=== PATIENT | male | born 1950 | race Caucasian/White ===

== ENCOUNTER 2019-01-30 11:33 | Inpatient (IN) | payer MEDICAID ==
[~2019-01-30] VITALS: Ht 175.3 cm; Wt 104.8 kg
[2019-01-30] MEDS ORDERED: MORPHINE SULFATE 4 MG/ML CPJ (NOT FOR IM USE) IV STA (14:06)
[2019-01-30] MEDS ORDERED: ONDANSETRON HCL 4MG/2ML INJ IV STA (14:06)
[2019-01-30] MEDS ORDERED: SODIUM CHLORIDE 0.9% 1,000 ML IV ONE (14:06)
[2019-01-30 14:27] LABS: BASOPHILS % 0.7 % (0.0-2.0); EOSINOPHILS % 1.6 % (0.0-5.0); HEMATOCRIT. 42.3 % (42.0-52.0); HEMOGLOBIN. 14.1 g/dL (14.0-18.0); LYMPHOCYTES % 24.4 % (20.0-50.0); MEAN CORPUSCULAR HEMOGLOBIN 29.5 pg (28.0-32.0); MEAN CORPUSCULAR VOLUME 88.8 fL (80.0-94.0); MEAN PLATELET VOLUME 9.6 fl (7.4-10.4); MONOCYTES % 6.1 % (2.0-8.0); NEUTROPHILS % 67.2 % (40.0-76.0); PLATELET 292 x1000/uL (130-400); RED BLOOD CELL COUNT 4.76 mill/uL (4.7-6.1); RED CELL DISTRIBUTION WIDTH 13.6 % (11.6-14.6)
[2019-01-30 14:28] LABS: CLARITY URINE CLEAR (CLEAR); COLOR URINE YELLOW (YELLOW); KETONES URINE NEGATIVE (NEGATIVE); LEUKOCYTE ESTERASE URINE NEGATIVE (NEGATIVE); NITRITE URINE NEGATIVE (NEGATIVE); OCCULT BLOOD URINE NEGATIVE (NEGATIVE); PROTEIN URINE NEGATIVE (NEGATIVE); SPECIFIC GRAVITY URINE 1.013 (1.005-1.030); UROBILINOGEN URINE 0.2 E.U./dL (0.2-1.0)
[2019-01-30 14:34] LABS: CHLORIDE 105 mEq/L (98-107)
[2019-01-30] MEDS ORDERED: FUROSEMIDE 40MG/4ML VIAL IVP ONE (17:00)
[2019-01-30] MEDS ORDERED: ASPIRIN 81MG TABLET PO ONE (17:30)
[2019-01-30] MEDS ORDERED: NITROGLYCERIN OINT 1GM/INCH UDPKT TD ONE (17:30)
[2019-01-30] MEDS ORDERED: MAGNESIUM/ALUMINUM HYDROXIDE/SIMETHICONE 30ML UDC PO PRN (18:30)
[2019-01-30] MEDS ORDERED: PIPERACILLIN/TAZ 3.375G PREMIX 50 ML IV SCH (18:30)
[2019-01-30] MEDS ORDERED: CLONIDINE 0.1MG TABLET PO PRN (18:30)
[2019-01-30] MEDS ORDERED: DOCUSATE SODIUM 100MG CAPSULE PO PRN (18:30)
[2019-01-30] MEDS ORDERED: LORAZEPAM 0.5MG TABLET PO PRN (18:30)
[2019-01-30] MEDS ORDERED: ENOXAPARIN 40MG/0.4ML SYR SUBCUT SCH (18:30)
[2019-01-30] MEDS ORDERED: GUAIFENESIN 200MG/10ML SUGAR FREE UDC PO PRN (18:30)
[2019-01-30] MEDS ORDERED: ONDANSETRON HCL 4MG/2ML INJ IV PRN (18:30)
[2019-01-30] MEDS ORDERED: IPRATROPIUM/ALBUTEROL 0.5-3(2.5)MG/3ML NEB NEB PRN (18:30)
[2019-01-30] MEDS ORDERED: NITROGLYCERIN 0.4MG TABLET SL SL PRN (18:30)
[2019-01-30] MEDS ORDERED: ACETAMINOPHEN 325MG TABLET PO PRN (18:30)
[2019-01-30] MEDS ORDERED: DIPHENHYDRAMINE 50MG/ML VIAL IV PRN (18:30)
[2019-01-30] MEDS ORDERED: KETOROLAC 15MG/ML VIAL IV PRN (19:05)
[2019-01-30 21:00] VITALS: BP 138/95
[2019-01-30] MEDS ORDERED: ZOLPIDEM TARTRATE 5MG TABLET PO PRN (21:00)
[2019-01-30] MEDS ORDERED: NA PHOS,M-B/NA PHOS,DI-BA ENEMA 118ML PR PRN (21:00)
[2019-01-30 21:15] VITALS: BP 139/85
[2019-01-30] MEDS: ASCORBIC ACID 500 MG TABLET PO SCH (22:08)
[2019-01-30] MEDS: FAMOTIDINE 20MG TABLET PO SCH (22:08)
[2019-01-30] MEDS: TRAMADOL 50MG TABLET PO PRN (22:10)
[2019-01-31] VITALS: BP 125/69
[2019-01-31 00:27] LABS: CREATINE KINASE 181 IU/L (39-308)
[2019-01-31 00:28] LABS: CREATINE KINASE MB FRACTION 1.8 ng/mL (0.5-3.6)
[2019-01-31] MEDS: PIPERACILLIN/TAZOBACTAM 3.375 G in DEXT 5% WATER 100 ML IV SCH ×3 (01:33→15:56)
[2019-01-31 04:00] VITALS: BP 114/61
[2019-01-31] MEDS: TRAMADOL 50MG TABLET PO PRN (04:24)
[2019-01-31 07:24] LABS: CREATINE KINASE 214 IU/L (39-308)
[2019-01-31 07:26] LABS: CREATINE KINASE MB FRACTION 1.7 ng/mL (0.5-3.6)
[2019-01-31 08:00] VITALS: BP 132/69
[2019-01-31] MEDS: FAMOTIDINE 20MG TABLET PO SCH ×2 (09:02→20:11)
[2019-01-31] MEDS: ZINC SULFATE 220 MG ( 50 ) CAPSULE PO SCH (09:02)
[2019-01-31] MEDS: ASCORBIC ACID 500 MG TABLET PO SCH ×2 (09:02→20:11)
[2019-01-31] MEDS: ENOXAPARIN 30MG/0.3ML SYR SUBCUT SCH ×2 (09:05→20:12)
[2019-01-31 12:00] VITALS: BP 124/69
[2019-01-31 16:00] VITALS: BP 117/68
[2019-01-31 20:00] VITALS: BP 132/68
[2019-02-01] VITALS: BP 130/70
[2019-02-01] MEDS: PIPERACILLIN/TAZOBACTAM 3.375 G in DEXT 5% WATER 100 ML IV SCH ×2 (00:14→08:52)
[2019-02-01 04:00] VITALS: BP 126/77
[2019-02-01 08:00] VITALS: BP 113/59
[2019-02-01] MEDS: ZINC SULFATE 220 MG ( 50 ) CAPSULE PO SCH (08:52)
[2019-02-01] MEDS: FAMOTIDINE 20MG TABLET PO SCH (08:53)
[2019-02-01] MEDS: ENOXAPARIN 30MG/0.3ML SYR SUBCUT SCH (08:53)
[2019-02-01] MEDS: ASCORBIC ACID 500 MG TABLET PO SCH (08:53)
[2019-02-01 10:06] VITALS: BP 113/59
[2019-02-01 10:49] VITALS: BP 113/59
[2019-02-01] MEDS: TRAMADOL 50MG TABLET PO PRN (10:49)
== END 2019-02-01 11:03 | disposition home or self-care (01) | DRG 663 ==
LOC: ER 11:33 → 8WST 18:04 → ENRESERV 20:11
PROVIDERS: ADMIT Internal Medicine; ATTEND Internal Medicine
DX: R59.0 Localized enlarged lymph nodes (principal); I11.0 Hypertensive heart disease with heart failure; I50.9 Heart failure, unspecified; C18.9 Malignant neoplasm of colon, unspecified; Z79.899 Other long term (current) drug therapy
CPT/HCPCS: 36415; 71045; 74176; 76705; 81003; 82550; 82553; 83036; 83880; 84146; 84484; 85651; 86140; 93005; 93970; 96374; 99285; J1650; J1885; J1940; J2270; J2405; J2543; J7030; J7060